=== PATIENT | female | born 1970 | race Two or more races ===

== ENCOUNTER 2018-02-19 11:04 | Outpatient (CLI) | payer OTHER ==
[~2018-02-19 11:04] MED LIST: CLONAZEPAM0.5 MG; MOBIC15 MG PO; PREVACID30 MG PO; TOPROL XL25 MG; TRAMADOL HCL50 MG PO; ZANTAC300 MG PO; ZOFRAN4 MG PO; ZYRTEC5 MG
== END 2018-02-19 15:00 | disposition home or self-care (01) ==
LOC: MRI 11:04
DX: R10.9 Unspecified abdominal pain (principal); R10.2 Pelvic and perineal pain; G43.919 Migraine, unspecified, intractable, without status migrainosus; M54.81 Occipital neuralgia; G51.3 Clonic hemifacial spasm; F41.0 Panic disorder [episodic paroxysmal anxiety]; M06.9 Rheumatoid arthritis, unspecified; D69.3 Immune thrombocytopenic purpura; M54.41 Lumbago with sciatica, right side
CPT/HCPCS: 72148; 72196; 74182

== ENCOUNTER 2018-02-19 11:32 | Outpatient (CLI) | payer OTHER | END 2018-02-19 15:00 | disposition home or self-care (01) | LOC: MAMO-SONO 11:32 | DX: N64.4 Mastodynia (principal); Z12.31 Encounter for screening mammogram for malignant neoplasm of breast ==

== ENCOUNTER 2018-07-21 11:50 | Outpatient (CLI) | payer OTHER | END 2018-07-21 13:39 | disposition home or self-care (01) | LOC: MRI 11:50 | DX: M87.051 Idiopathic aseptic necrosis of right femur (principal) | CPT/HCPCS: 70543; 73723 ==

== ENCOUNTER → 2018-08-08 | Outpatient (CLI) | payer OTHER | END | disposition home or self-care (01) | LOC: TOM 11:45 → RAD 14:32 | DX: G43.919 Migraine, unspecified, intractable, without status migrainosus (principal); M54.81 Occipital neuralgia; G51.3 Clonic hemifacial spasm; F41.0 Panic disorder [episodic paroxysmal anxiety]; M06.9 Rheumatoid arthritis, unspecified; D69.3 Immune thrombocytopenic purpura; M54.41 Lumbago with sciatica, right side; E04.2 Nontoxic multinodular goiter; N20.1 Calculus of ureter ==

== ENCOUNTER 2018-12-16 17:09 | Outpatient (CLI) | payer OTHER | END 2018-12-16 22:00 | disposition home or self-care (01) | LOC: RAD 17:09 | DX: R05 Cough (principal) ==

== ENCOUNTER 2019-01-10 15:03 | Outpatient (CLI) | payer OTHER | END 2019-01-10 18:00 | disposition home or self-care (01) | LOC: RAD 15:03 | DX: I40.8 Other acute myocarditis (principal) ==

== ENCOUNTER 2019-02-17 11:30 | Outpatient (CLI) | payer OTHER | END 2019-02-17 11:31 | disposition home or self-care (01) | LOC: SONOGRAMA 11:30 | DX: E04.2 Nontoxic multinodular goiter (principal) ==

== ENCOUNTER 2019-07-09 11:34 | Outpatient (CLI) | payer OTHER | END 2019-07-09 11:46 | disposition home or self-care (01) | LOC: MAMO-SONO 11:34 | DX: Z12.31 Encounter for screening mammogram for malignant neoplasm of breast (principal); Z87.898 Personal history of other specified conditions ==

== ENCOUNTER 2019-10-09 14:53 | Outpatient (CLI) | payer OTHER | END 2019-10-09 14:58 | disposition home or self-care (01) | LOC: SONOGRAMA 14:53 | DX: E04.2 Nontoxic multinodular goiter (principal) ==

== ENCOUNTER 2022-02-16 13:30 | Outpatient (CLI) | payer OTHER | END 2022-02-16 13:50 | disposition home or self-care (01) | LOC: MRI 13:30 | PROVIDERS: ATTEND Psychiatry & Neurology Neurology | DX: G43.719 Chronic migraine without aura, intractable, without status migrainosus (principal); R10.2 Pelvic and perineal pain; H81.11 Benign paroxysmal vertigo, right ear; M50.10 Cervical disc disorder with radiculopathy, unspecified cervical region | CPT/HCPCS: 70551; 72141 ==

== ENCOUNTER 2022-03-23 13:11 | Outpatient (CLI) | payer OTHER | END 2022-03-23 13:17 | disposition home or self-care (01) | LOC: SONOGRAMA 13:11 | PROVIDERS: ATTEND General Practice | DX: E04.2 Nontoxic multinodular goiter (principal) ==

== ENCOUNTER 2023-07-12 11:42 | Outpatient (CLI) | payer OTHER | END 2023-07-12 12:08 | disposition home or self-care (01) | LOC: MRI 11:42 | PROVIDERS: ATTEND General Practice | DX: M54.50 Low back pain, unspecified (principal); M53.3 Sacrococcygeal disorders, not elsewhere classified; E04.2 Nontoxic multinodular goiter | CPT/HCPCS: 72148 ==

== ENCOUNTER 2023-08-13 08:06 | Outpatient (CLI) | payer OTHER | END 2023-08-13 08:13 | disposition home or self-care (01) | LOC: SONOGRAMA 08:06 | PROVIDERS: ATTEND General Practice | DX: R10.12 Left upper quadrant pain (principal) ==